=== PATIENT | female | born 1990 | race American Indian/Alaskan Native ===

== ENCOUNTER 2017-09-21 20:18 | Emergency (ER) | payer SELFPAY ==
[2017-09-21 20:45] VITALS: BP 132/87
[2017-09-21] MEDS ORDERED: TYLENOL PO ONE (21:12)
== END 2017-09-21 23:30 | disposition left against medical advice (07) ==
LOC: ED 20:18
DX: R68.84 Jaw pain (principal); Z53.21 Procedure and treatment not carried out due to patient leaving prior to being seen by health care provider
CPT/HCPCS: 81025